=== PATIENT | female | born 1965 | race Two or more races ===

== ENCOUNTER 2025-01-20 14:16 | Emergency (ER) | payer OTHER ==
[~2025-01-20] VITALS: Ht 165.1 cm; Wt 70.5 kg
[2025-01-20] MEDS: HYDROcodone-ACET 5/325MG TAB PO ONE (16:13)
--- NOTE | 2025-01-20 16:14 | ED.PDOC ---
Back pain HPI HPI Comments 59 YEAR OLD FEMALE PRESENTS TO THE ED WITH A CHIEF COMPLAINT OF LOW BACK PAIN ONSET 4 DAYS. PATIENT STATES SHE SHE HAS SCIATICA ON LT LEG, FOR THE PAST 4 DAYS NOTICED SCIATICA PAIN ON RT SIDE WELL WEAKNESS. PATIENT HAS TAKEN ROBAXIN AND TYLENOL TO TREAT SCIATICA PAIN IN THE PAST. PMHX SCIATICA. DENIES DYSURIA, HEMATURIA, FREQUENCY, PELVIC NUMBNESS, NAUSEA, VOMITING, FALL, INJURY. NO OTHER SYMPTOMS OR MODIFYING FACTORS PRESENT AT THIS TIME. 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 PATIENT CHANGED INSURANCE SO SHE WAS NOT BEEN ABLE TO FOLLOW UP WITH SURGERY. Chief Complaint: Back Pain Time Seen by MD: 15:40 Primary Care Provider: yuies Reviewed Notes: Nurses Notes, Medications, Allergies Allergies: Coded Allergies: Naproxen (Verified Allergy, Mild, hives, 01/20/25) Information Source: Patient Mode of Arrival: Ambulatory Timing: Days Duration: Since onset Location of Back pain: (R) Lower back Radiates to: Anterior: (R) Thigh Radiates to: Posterior: (R) Thigh Radiates to: Medial: (R) Thigh Radiates to: Lateral: (R) Thigh Severity: Moderate Prehospital treatment: None Circumstance: Other History of: Other (sciatica ) Modifying Factors: Nothing Associated signs and symptoms: Weakness:(R) Leg Past Medical History Past Medical History (Other): sciatica Surgical History: Denies all surgeries Family History Family History: Unknown Social History Smoker: Non-Smoker Alcohol: Denies ETOH Use Drugs: Denies Drug Use Lives In: Home Constitutional: denies: chills, diaphoresis, fatigue, fever, malaise, sweats, weakness, others EENTM: denies: blurred vision, double vision, ear bleeding, ear discharge, ear drainage, ear pain, ear ringing, eye pain, eye redness, hearing loss, mouth pain, mouth swelling, nasal discharge, nose bleeding, nose congestion, nose pain, photophobia, tearing, throat pain, throat swelling, voice changes, others Cardiovascular: denies: chest pain, dizzy spells, diaphoresis, Dyspnea on exertion, edema, irregular heart beat, left arm pain, lightheadedness, palpitations, PND, syncope, others Gastrointestinal: denies: abdomen distended, abdominal pain, blood streaked bowels, constipated, diarrhea, dysphagia, difficulty swallowing, hematemesis, melena, nausea, poor appetite, poor fluid intake, rectal bleeding, rectal pain, vomiting, others Genitourinary: denies: abnormal vagina bleeding, burning, dyspareunia, dysuria, flank pain, frequency, hematuria, incontinence, pain, , vagina discharge, urgency, others Neurological: reports: weakness ( RT leg); denies: dizziness, fainting, headache, left sided numbness, left sided weakness, numbness, paresthesia, pre- existing deficit, right sided numbness, right sided weakness, seizure, speech problems, tingling, tremors, others Musculoskeletal: reports: back pain, others (RT sciatica pain ); denies: gout, joint pain, joint swelling, muscle pain, muscle stiffness, neck pain Integumetry: denies: bruises, change in color, change in hair/nails, dryness, laceration, lesions, lumps, rash, wounds, others Allergic/Immunocompromised: denies: Difficulty Healing, Frequent Infections, Hives, Itching, others Hematologic/Lymphatic: denies: anemia, blood clots, easy bleeding, easy bruising, swollen glands, others Endocrine: denies: excessive hunger, excessive sweating, excessive thirst, excessive urination, flushing, intolerance to cold, intolerance to heat, unexplained weight gain, unexplained weight loss, others Psychiatric: denies: anxiety, bipolar disorder, depression, hopeless, panic disorder, schizophrenia, sleepless, suicidal, others All Other Systems: Reviewed and Negative Physical Exam General Appearance: No Apparent Distress, Normal HEENT: Normal ENT Inspection, Pharynx Normal, TMs Normal Neck: Full Range of Motion, Non-Tender, Normal, Normal Inspection Respiratory: Chest Non-Tender, Lungs Clear, No Accessory Muscle Use, No R espiratory Distress, Normal Breath Sounds Cardiovascular: No Edema, No JVD, No Murmur, No Gallop, Normal Peripheral Pulses, Regular Rate/Rhythm Breast Exam: Deferred Gastrointestinal: No Organomegaly, Non Tender, No Pulsatile Mass, Normal Bowel Sounds, Soft Genitalia: Deferred Pelvic: Deferred Rectal: Deferred Extremities: Normal capillary refill, No pedal edema, Tender, Other (positive seated distracted RT leg raise test) Musculoskeletal : Apperance: Normal Neurologic: Alert, appraiser oil and water II-XII nml as Tested, No Motor Deficits, Normal Affect, Normal Mood, No Sensory Deficits Cerebellar Function: Normal Reflexes: Normal Skin: Dry, Normal Color, Warm Lymphatic: No Adenopathy Was a procedure done? Was a procedure done?: No Back Pain Differential Dx Differential Diagnosis: Cholelithiasis, Cholangitis, DJD, Fracture, Musculoskeletal Pain, Pyelonephritis, Strain X-Ray, Labs, Meds, VS Vital Signs Date Time Temp Pulse Resp B/P (MAP) Pulse Ox O2 Delivery O2 Flow Rate FiO2 01/20/25 16:16 18 Room Air* 0 21 01/20/25 14:54 98.1 64 16 126/84 (98) 98 Current Medications Medications (Trade) Dose Ordered Sig/Paula Route Start Time Stop Time Status Last Admin Methylprednisolone Sodium Succinate (Solu Medrol) 125 mg ONCE ONCE IM 01/20/25 16:00 01/20/25 16:01 DC 01/20/25 16:16 Acetaminophen/ Hydrocodone Bitart ([place] 5/325MG Tab) 1 tab ONCE ONCE PO 01/20/25 16:00 01/20/25 16:01 DC 01/20/25 16:13 X-Ray, Labs, Meds, VS Comment Imaging: X-rays and CT scans were reviewed and interpreted by this provider, imaging shows no fractures and no pathological disease. Pending radiology review. Laboratory: Labs reviewed and interpreted by this provider. No significant abnormalities noted. Patient has prior medical visits reviewed. Med reconciliation performed Vital signs reviewed Time of 1ST Reevaluation: 16:10 Reevaluation 1ST: Unchanged Patient Education/Counseling: Diagnosis, Treatment, Prognosis, Need For Follow Up (Follow up in the emergency department the next 24-48 hours if symptoms worsen.) Family Education/Counseling: No Family Present Departure 1 Departure Time of Disposition: 17:05 Impression: Primary Impression: Lumbar radiculopathy Disposition: 01 HOME / SELF CARE / HOMELESS Condition: Fair e-Prescriptions Lidocaine (LIDODERM 5% TOPICAL PATCH) 1 Patch Ph 1 PATCH TOP DAILY, #30 PATCH 1 Refill Prov: OTTO WILLSON 01/20/25 Cyclobenzaprine Hcl (Cyclobenzaprine Hcl) 5 Mg Tab 1 TAB PO TID PRN, #60 TAB Prov: OTTO WILLSON 01/20/25 Discharged With: Self Critical Care Note Critical Care Time?: No Stability Stability form required: No Heart Score Heart Score: Heart Score Response (Comments) Value History N/A 0 EKG N/A 0 Age N/A 0 Risk Factors N/A 0 Troponin N/A 0 Total 0 I personally scribed for OTTO WILLSON ([email or web address]) on 01/20/25 at 16:14. Electronically submitted by Clarice Brenner ([email or web address]). OTTO WILLSON Jan 20, 2025 16:14
[2025-01-20 16:16] VITALS: RESP 18
[2025-01-20] MEDS: methylPREDNISolone SOD SUCC 125 MG/2 ML VL IM ONE (16:16)
[2025-01-20] MEDS ORDERED: CYCL-837 PO (17:06)
[2025-01-20] MEDS ORDERED: LIDO5DIS21 TOP (17:06)
[2025-01-20 17:37] VITALS: BP 149/79; PULSE 57; RESP 16; TEMP 98.3; O2SAT 97
[2025-01-20] MEDS ORDERED: DICL50TA2 PO (18:00)
== END 2025-01-20 17:38 | disposition home or self-care (01) ==
LOC: ER 14:16
DX: M54.16 Radiculopathy, lumbar region (principal); Z88.6 Allergy status to analgesic agent
CPT/HCPCS: 96372; 99283; J2919

== ENCOUNTER 2025-08-25 11:02 | Emergency (ER) | payer OTHER ==
[~2025-08-25] VITALS: Ht 162.6 cm; Wt 68.4 kg
[~2025-08-25 11:02] MED LIST: CYCL-837 PO; DICL50TA2 PO; LIDO5DIS21 TOP
[2025-08-25 11:03] VITALS: TEMP 98.6
[2025-08-25 11:43] VITALS: BP 127/76; PULSE 77; RESP 20; O2SAT 96
[2025-08-25] MEDS ORDERED: TRAM-626 PO (11:52)
--- NOTE | 2025-08-25 11:53 | ED.PDOC ---
Back pain HPI HPI Comments 59-year-old female presents for sciatica. Hx of sciatica > 10 years. States on using ibuprofen 800 mg, turmeric, steroid shot for which all have not been any help. Patient states on having the back pain two years ago which subsided but recently flared up one month ago and has been radiating down the left leg. Patient states on using walker at home. Denies any other symptoms at this time. Denies history of chronic steroid use or history of osteoporosis Denies history of cancer Denies fevers chills night sweats nausea vomiting unintentional weight loss Denies abdominal tearing pain Denies syncope Denies urinary changes or urinary incontinence Denies numbness tingling of the groin her inner thigh Denies previous back procedures or surgeries Chief Complaint: Back Pain Time Seen by MD: 11:45 Primary Care Provider: yuies Reviewed Notes: Nurses Notes, Medications, Allergies Allergies: Coded Allergies: Naproxen (Verified Allergy, Mild, hives, 01/20/25) Home Meds Active Scripts Tramadol HCl (Tramadol HCl) 50 Mg Tab, 50 MG PO Q8HP PRN for 5 Days, #15 TAB 0 Refills Prov:JOYA MEDINA NP 08/25/25 Diclofenac Potassium (Diclofenac Potassium) 50 Mg Tab, 1 TAB PO BID, #60 TAB 1 Refill Prov:OTTO WILLSONP 01/20/25 Lidocaine (LIDODERM 5% TOPICAL PATCH) 1 Patch Ph, 1 PATCH TOP DAILY, #30 PATCH 1 Refill Prov:OTTO WILLSON [employer] V[employer]IN[employer]IAN 01/20/25 Cyclobenzaprine Hcl (Cyclobenzaprine Hcl) 5 Mg Tab, 1 TAB PO TID PRN, #60 TAB Prov:OTTO WILLSON [employer] VETERINARIAN 01/20/25 Information Source: Patient Mode of Arrival: Ambulatory Timing: Weeks Duration: Since onset Severity: Moderate Prehospital treatment: None Onset: Spontaneous History of: Chronic Back Pain Associated signs and symptoms: None Past Medical History PAST MEDICAL HISTORY: Denies Past Medical History (Other): Chronic back pain Surgical History: Denies all surgeries LIFE SKILLS COORDINATOR History: No Pertinent LIFE SKILLS COORDINATOR History Family History Family History: Reviewed,noncontributory to illness, Unknown Social History Smoker: Non-Smoker Alcohol: Denies ETOH Use Drugs: Denies Drug Use Lives In: Home Constitutional: denies: chills, diaphoresis, fatigue, fever, malaise, sweats, weakness, others EENTM: denies: blurred vision, double vision, ear bleeding, ear discharge, ear drainage, ear pain, ear ringing, eye pain, eye redness, hearing loss, mouth pain, mouth swelling, nasal discharge, nose bleeding, nose congestion, nose pain, photophobia, tearing, throat pain, throat swelling, voice changes, others Respiratory: denies: cough, hemoptysis, orthopnea, SOB at rest, shortness of breath, SOB with excertion, stridor, wheezing, others Cardiovascular: denies: chest pain, dizzy spells, diaphoresis, Dyspnea on exertion, edema, irregular heart beat, left arm pain, lightheadedness, palpitations, PND, syncope, others Gastrointestinal: denies: abdomen distended, abdominal pain, blood streaked bowels, constipated, diarrhea, dysphagia, difficulty swallowing, hematemesis, melena, nausea, poor appetite, poor fluid intake, rectal bleeding, rectal pain, vomiting, others Genitourinary: denies: abnormal vagina bleeding, burning, dyspareunia, dysuria, flank pain, frequency, hematuria, incontinence, pain, , vagina discharge, urgency, others Neurological: denies: dizziness, fainting, headache, left sided numbness, left sided weakness, numbness, paresthesia, pre-existing deficit, right sided numbness, right sided weakness, seizure, speech problems, tingling, tremors, weakness, others Musculoskeletal: reports: back pain; denies: gout, joint pain, joint swelling, muscle pain, muscle stiffness, neck pain, others Integumetry: denies: bruises, change in color, change in hair/nails, dryness, laceration, lesions, lumps, rash, wounds, others Allergic/Immunocompromised: denies: Difficulty Healing, Frequent Infections, Hives, Itching, others Hematologic/Lymphatic: denies: anemia, blood clots, easy bleeding, easy bruising, swollen glands, others Endocrine: denies: excessive hunger, excessive sweating, excessive thirst, excessive urination, flushing, intolerance to cold, intolerance to heat, unexplained weight gain, unexplained weight loss, others Psychiatric: denies: anxiety, bipolar disorder, depression, hopeless, panic disorder, schizophrenia, sleepless, suicidal, others All Other Systems: Reviewed and Negative Physical Exam General Appearance: No Apparent Distress, Normal HEENT: Normal ENT Inspection, Pharynx Normal, TMs Normal Neck: Full Range of Motion, Non-Tender, Normal, Normal Inspection Respiratory: Chest Non-Tender, Lungs Clear, No Accessory Muscle Use, No Respiratory Distress, Normal Breath Sounds Cardiovascular: No Edema, No JVD, No Murmur, No Gallop, Normal Peripheral Pulses, Regular Rate/Rhythm Breast Exam: Deferred Gastrointestinal: No Organomegaly, Non Tender, No Pulsatile Mass, Normal Bowel Sounds, Soft Genitalia: Deferred Pelvic: Deferred Rectal: Deferred Extremities: No calf tenderness, Normal capillary refill, Normal inspection, Normal range of motion, Non-tender, No pedal edema Musculoskeletal : Apperance: Normal Neurologic: Alert, hearing aide technician II-XII nml as Tested, No Motor Deficits, Normal Affect, Normal Mood, No Sensory Deficits Cerebellar Function: Normal Reflexes: Normal Skin: Dry, Normal Color, Warm Lymphatic: No Adenopathy Was a procedure done? Was a procedure done?: No Back Pain Differential Dx Differential Diagnosis: Musculoskeletal Pain X-Ray, Labs, Meds, VS Vital Signs Date Time Temp Pulse Resp B/P (MAP) Pulse Ox O2 Delivery O2 Flow Rate FiO2 08/25/25 11:43 77 20 96 Room Air 08/25/25 11:43 77 18 127/76 (93) 96 08/25/25 11:03 98.6 92 18 134/84 96 98.6 Current Medications Medications (Trade) Dose Ordered Sig/Paula Route Start Time Stop Time Status Last Admin Methylprednisolone Sodium Succinate (Solu Medrol) 125 mg ONCE ONCE IM 08/25/25 12:00 08/25/25 12:01 DC 08/25/25 12:06 X-Ray, Labs, Meds, VS Comment 59-year-old female presents to the ER with a prior MHx of a collapsed desk in the chief complaint of back pain. Patient arrives alert and oriented, ABC's intact, afebrile, vital signs stable, saturating well in room air Patient was given: Solu-Medrol. Tolerated medications with no adverse reaction. The patient presents with signs and symptoms of sciatica. The episode appears to be exacerbated by an unknown cause at this time. However, the patient's motor strengths are currently intact. There are no signs of cauda equina or cord compression at this time. I suspect most likely a radicular nature of their symptoms that should resolve with some bed rest, NSAIDs, pain control medications, and stretching as tolerated. The differential for a acute vascular, neurologic, malignant, or infectious etiology is much less likely given their presentation. The patient does not warrant a radiological exam at this time. The patient was given - for pain control in the ED. On reassessment, the patient's symptoms improved and the patient was able to ambulate without assistive devices. The patient will follow up with the primary care doctor to see if there symptoms joanne. An MRI may need to be ordered if there symptoms worsen or do not improve over time. The patient was counseled regard to the diagnosis and management of the condition and verbalized understanding to this. The patient understands to return to the ER or seek immediate medical attention if symptoms worsen. Additional MDM Review of External, Non-ED records: External records reviewed. Discussion with independent historian (EMS, family) history obtained from the patient/parents (if applicable) at bedside Chronic conditions affecting care: None Social determinants of health affecting care: None Consideration of admission (observation or admission): I considered escalation of care to admission for this patient, however given the reassuring workup, the patient is safe for outpatient management. Discussion with the Radiology: No Tests considered but not performed: Prescription medication considered but not given: 12 lead EKG interpretation: Time of 1ST Reevaluation: 12:15 Reevaluation 1ST: Unchanged Patient Education/Counseling: Diagnosis, Treatment, Prognosis Family Education/Counseling: No Family Present SEPSIS Sepsis Screen Date sepsis recognized/suspect: Aug 25, 2025 Time Sepsis recognized/suspect: 1103 Recent Procedure: No On Antibiotic Therapy: No Respiratory Rate >20: No Heart Rate >90: No Temp<36 C (96.8 F) or >38.3 C: No SBP <90 or MAP <65 mmHG: No New Acute Mental Status Change: No Is the patient on CPAP, BIPAP,: No Vital Signs Date Time Temp Pulse Resp B/P (MAP) Pulse Ox O2 Delivery O2 Flow Rate FiO2 08/25/25 11:43 77 20 96 Room Air 08/25/25 11:43 77 18 127/76 (93) 96 08/25/25 11:03 98.6 92 18 134/84 96 98.6 Medications Medications Dose Ordered Sig/Paula Route Start Time Stop Time Status Last Admin Dose Admin Methylprednisolone Sodium Succinate 125 mg ONCE ONCE IM 08/25/25 12:00 08/25/25 12:01 DC 08/25/25 12:06 Departure 1 Departure Time of Disposition: 11:51 Impression: Primary Impression: Sciatica Qualified Codes: M54.32 - Sciatica, left side Disposition: HOME / SELF CARE / HOMELESS Condition: Stable e-Prescriptions Tramadol HCl (Tramadol HCl) 50 Mg Tab 50 MG PO Q8HP PRN for 5 Days, #15 TAB 0 Refills Prov: JOYA MEDINA NP 08/25/25 Discharged With: Self Critical Care Note Critical Care Time?: No Stability Stability form required: No Heart Score Heart Score: Heart Score Response (Comments) Value History N/A 0 EKG N/A 0 Age N/A 0 Risk Factors N/A 0 Troponin N/A 0 Total 0 I personally scribed for JOYA MEDINA NP ([email or web address]) on 08/25/25 at 11:58. Electro nically submitted by Juliano Howard ([email or web address]). JOYA MEDINA NP Aug 25, 2025 11:53
[2025-08-25] MEDS: methylPREDNISolone SOD SUCC 125 MG/2 ML VL IM ONE (12:06)
== END 2025-08-25 12:07 | disposition home or self-care (01) ==
LOC: ER 11:02
DX: M54.32 Sciatica, left side (principal); Z88.6 Allergy status to analgesic agent; Z79.899 Other long term (current) drug therapy
CPT/HCPCS: 96372; 99283; J2919